=== PATIENT | male | born 1940 | race Caucasian/White ===

== ENCOUNTER → 2018-06-02 | Outpatient (REF) | payer MEDICARE ==
[2018-06-02 14:11] LABS: BASO % 0.6 % (0.0-1.0); EOS # 0.1 10^3/uL (0.0-0.50); EOS % 1.6 % (0.0-3.0); HEMATOCRIT 39.6 % (42.0-52.0); HEMOGLOBIN 12.2 g/dl (13.5-17.5); LYMPH # 1.7 10^3/uL (1.5-4.5); LYMPH % 33.5 % (24.0-44.0); MEAN CORPUSCULAR HEMOGLOBIN 20.5 pg (27.0-33.0); MEAN CORPUSCULAR HGB CONC 30.8 g/dl (32.0-36.5); MEAN CORPUSCULAR VOLUME 66.4 fl (80.0-96.0); MONO # 0.4 10^3/uL (0.0-0.8); MONO % 7.5 % (0.0-5.0); NEUTROPHILS # 2.8 10^3/uL (1.8-7.7); NEUTROPHILS % 56.2 % (36.0-66.0); PLATELET COUNT, AUTOMATED 202 10^3/uL (150-450); RED BLOOD COUNT 5.96 10^6/uL (4.30-6.10); WHITE BLOOD COUNT 5.1 10^3/uL (4.0-10.0)
[2018-06-02 14:17] LABS: C REACTIVE PROTEIN QUANTITATIV 0.32 MG/DL (0.00-0.30); CHOLESTEROL RISK RATIO 3.269 (<5); PERCENT SATURATION 39.7 % (19.7-50.0)
== END ==
LOC: M SFHCPLAZ 09:29
PROVIDERS: ATTEND Family Medicine
DX: D56.3 Thalassemia minor (principal); E78.2 Mixed hyperlipidemia; E53.8 Deficiency of other specified B group vitamins; N40.1 Benign prostatic hyperplasia with lower urinary tract symptoms; Z12.5 Encounter for screening for malignant neoplasm of prostate
CPT/HCPCS: 36415; 80061; 82550; 82728; 83550; 85025; 86140; G0103

== ENCOUNTER 2018-06-29 16:31 | Inpatient (IN) | payer MEDICARE ==
[~2018-06-29] VITALS: Ht 177.8 cm; Wt 77.0 kg
[2018-06-29] MEDS ORDERED: PANT40TA3 (16:42)
[2018-06-29] MEDS ORDERED: TRIA1CR80 (16:42)
[2018-06-29] MEDS ORDERED: SERT-155 (16:42)
--- NOTE | 2018-06-29 17:20 | REP ---
Right lower extremity duplex venous ultrasound: History: Swelling. Calf pain. Question DVT. Findings: There is occlusive deep venous thrombosis in the femoral vein on the right from the proximal through popliteal vein and into the calf venous confluence. The common femoral vein itself is clear. Impression: Fairly extensive occlusive deep venous thrombosis in the right thigh. Electronically Signed by Jae Chambers MD 06/29/2018 05:11 P
[2018-06-29] MEDS ORDERED: NS 1,000 ML IV ONE (19:00)
[2018-06-29 19:04] LABS: BASO % 0.2 % (0.0-1.0); EOS # 0.1 10^3/uL (0.0-0.50); EOS % 0.6 % (0.0-3.0); HEMATOCRIT 36.6 % (42.0-52.0); HEMOGLOBIN 11.4 g/dl (13.5-17.5); LYMPH # 1.8 10^3/uL (1.5-4.5); LYMPH % 21.1 % (24.0-44.0); MEAN CORPUSCULAR HEMOGLOBIN 20.4 pg (27.0-33.0); MEAN CORPUSCULAR HGB CONC 31.1 g/dl (32.0-36.5); MEAN CORPUSCULAR VOLUME 65.6 fl (80.0-96.0); MONO # 0.8 10^3/uL (0.0-0.8); MONO % 8.9 % (0.0-5.0); NEUTROPHILS # 5.9 10^3/uL (1.8-7.7); NEUTROPHILS % 68.7 % (36.0-66.0); PLATELET COUNT, AUTOMATED 194 10^3/uL (150-450); RED BLOOD COUNT 5.58 10^6/uL (4.30-6.10); WHITE BLOOD COUNT 8.6 10^3/uL (4.0-10.0)
[2018-06-29 19:13] LABS: BLOOD UREA NITROGEN 16 MG/DL (7-18); CALCIUM LEVEL 8.5 MG/DL (8.8-10.2); CARBON DIOXIDE LEVEL 29 MEQ/L (21-32); CHLORIDE LEVEL 105 MEQ/L (98-107); CREATININE FOR GFR 0.84 MG/DL (0.70-1.30); GLOMERULAR FILTRATION RATE > 60.0 (>42); GLUCOSE, FASTING 103 MG/DL (70-100); POTASSIUM SERUM 4.2 MEQ/L (3.5-5.1); SODIUM LEVEL 141 MEQ/L (136-145); TROPONIN I < 0.02 NG/ML (< 0.10)
[2018-06-29 19:20] LABS: INR 1.03; PROTHROMBIN TIME 13.6 SECONDS (12.1-14.4)
[2018-06-29 19:21] LABS: PARTIAL THROMBOPLASTIN TIME 32.7 SECONDS (25.4-37.6)
[2018-06-29] MEDS ORDERED: ISOVUE-370 76% 100ML VIAL (Q9967) As Ordered ONE (19:31)
--- NOTE | 2018-06-29 20:42 | REPVR ---
EXAM: CT Angiography Chest With Contrast EXAM DATE/TIME: 06/29/2018 7:43 PM CLINICAL HISTORY: 77 years old, male; Signs and symptoms; Dyspnea; Additional info: Acute dvt, dyspnea R/O pe TECHNIQUE: Axial computed tomographic angiography images of the chest with intravenous contrast using CT angiography protocol. All CT scans at this facility use at least one of these dose optimization techniques: automated exposure control; mA and/or kV adjustment per patient size (includes targeted exams where dose is matched to clinical indication); or iterative reconstruction. Coronal and sagittal reformatted images were created and reviewed. MIP reconstructed images were created and reviewed. CONTRAST: 75 ml of ISOVUE 370 administered intravenously. COMPARISON: CR Abdomen,Flat Upright,PA CHEST 12/27/2013 12:29 PM FINDINGS: Pulmonary arteries: The main pulmonary artery measures 26 mm. Moderate bilateral pulmonary embolism involving all lobes to some degree. Aorta: The ascending thoracic aorta measures 30 mm. No gross or obvious aortic dissection is identified distal to the mid arch. Artifact and image degradation precludes detailed evaluation of the ascending thoracic aorta. Lungs: Minimal diffuse bullous change with slight interstitial prominence. Pleural space: Normal. No pneumothorax. No pleural effusion. Heart: Normal. No cardiomegaly. No pericardial effusion. Lymph nodes: Unremarkable. No enlarged lymph nodes. Bones/joints: Unremarkable. No acute fracture. Soft tissues: Unremarkable. IMPRESSION: 1. Moderate bilateral pulmonary embolism. 2. Minimal diffuse bullous change with slight interstitial prominence. Electronically signed by: James Claros On 06/29/2018 20:42:23 PM
[2018-06-29] MEDS ORDERED: ENOXAPARIN 80 MG/0.8 ML SYRINGE (J1650) SC ONE (21:15)
[2018-06-29] MEDS ORDERED: SERT-155 PO (21:26)
[2018-06-29] MEDS ORDERED: VITATAB73 PO (21:26)
[2018-06-29] MEDS ORDERED: PANT40TA3 PO (21:26)
[2018-06-29] MEDS ORDERED: CORT1OIN2 TOP (21:26)
[2018-06-29] MEDS ORDERED: VITA10002 PO (21:26)
[2018-06-29] MEDS ORDERED: IBUPOTC PO (21:26)
[2018-06-29] MEDS ORDERED: TYLE500T78 PO (21:26)
--- NOTE | 2018-06-29 22:15 | HPEPDOC ---
[facility] Medical History & Physical Date of Admission Jun 29, 2018 Other Provider Dictating/admitting: Chandan Rossi M.D. Attending Physician: HEATHER MONCADA DO History and Physical CHIEF COMPLAINT: Shortness of breath, swollen and painful right lower extremity 3 days HISTORY OF PRESENT ILLNESS: Patient is a 77-year-old man with medical history significant for anemia, secondary to beta thalassemia, GERD, depression, migraine headaches, lumbar degenerative disease. Patient reports not feeling well for the past couple of weeks with generalized malaise been unable to get out of bed. He also complains of shortness of breath as well as swollen right lower extremity associated with pain for 3 days. At the time pain was relieved with Tylenol and ibuprofen. However, he noted today. He had right lower cough, swelling and he feels his right leg a little heavier. And on account of this, he was brought in to the emergency room for further evaluation. He has shortness of breath. He says none concerning. He attributes this to his generalized weakness but denies any associated cough, no fever, no chills. He refers inactivity for the past couple of weeks and has found it progressively difficult getting out of bed. He was evaluated in the emergency room with lower extremity ultrasound as well as a CT angiography of the chest which were significant for DVT and PE. At this time. He denies any palpitations. No cough. No nausea no vomiting. He denies any fever, no chills. He also denies any change in his bowel or urinary habits. Dr. Garcia was curb sided and he recommends that patient be an ticoagulated at this time. Patient will be admitted to the PCU with anticoagulation. PAST MEDICAL HISTORY: Per HPI PAST SURGICAL HISTORY: 1. Inguinal hernia repair. 2. Septoplasty. 3. Colonoscopy showing diverticulosis. SOCIAL HISTORY: Denies smoking, denies alcohol use. Denies illicit drug use FAMILY HISTORY: Father: , in World War II at age 25 Mother: Alive, diagnosed with colon cancer at age 82 Siblings: 2 brothers and 3 sisters. One brother from AIDS denies cancers in the family Children: 5 daughters ALLERGIES: Please see below. REVIEW OF SYSTEMS: 12 point review of systems negative other than that described in the body of HPI. HOME MEDICATIONS: Please see below. PHYSICAL EXAMINATION: VITAL SIGNS: Temperature 97.2, pulse 84, respiratory rate 16, blood pressure 168/16, pulse oximetry 99% on room air. GENERAL APPEARANCE: Elderly man, lying calmly in bed, not in any apparent distress. He is not pale, anicteric and afebrile HEENT: Atraumatic. Neck: Supple. LUNGS: Clear to auscultation bilaterally. CARDIOVASCULAR: S1 and 2 heard, no murmurs, rubs or gallops. ABDOMEN: Obese, soft, not tender, not distended. Bowel sounds normoactive. MUSCULOSKELETAL: Apparently within normal limits. EXTREMITIES: No pedal edema, 2+ bilateral pedal pulses noted. NEUROLOGICAL: Awake, alert, oriented 3. PSYCHIATRIC: Normal affect LABORATORY DATA: See below. IMAGING: Right lower extremity ultrasound: Fairly extensive occlusive DVT in the right thigh. CT angiogram chest: Minimal diffuse bullous changes with slight interstitial prominence, moderate bilateral PE. EKG: Normal sinus rhythm, no acute ST or T-wave changes. MICROBIOLOGY: Please see below. ASSESSMENT: 77-year-old man with above-mentioned comorbid history comes in with generalized malaise, shortness of breath, right lower extremity swelling and pain. Imaging consistent with DVT in the right lower extremity and moderate bilateral PE. DIAGNOSES: 1. Bilateral PE. 2. Right lower extremity DVT . PLAN: 1. I will admit patient to the PCU under care of Dr. Moncada. 2. Patient will continue with Lovenox dosed by weights. Patient weighs 8KGs. He will get 80 mg twice a day. Day team may consider switching to NOACS when indicated. 3. Will resume outpatient medications as soon as reconciled. 4. GI prophylaxis. Pantoprazole. 5. DVT prophylaxis will continue with anticoagulation as above. 6. Follow-up coag panel pending. 7. Further treatment will be per patient's clinical course. Vital Signs Vital Signs Date Time Temp Pulse Resp B/P (MAP) Pulse Ox O2 Delivery O2 Flow Rate FiO2 06/29/18 18:14 06/29/18 16:31 97.2 84 16 99 Room Air Laboratory Data Labs 24H Laboratory Tests 2 06/29/18 18:43: Immature Granulocyte % (Auto) 0.5, White Blood Count 8.6, Red Blood Count 5.58, Hemoglobin 11.4L, Hematocrit 36.6L, Mean Corpuscular Volume 65.6L, Mean Corpuscular Hemoglobin 20.4L, Mean Corpuscular Hemoglobin Concent 31.1L, Red Cell Distribution Width 17.4H, Platelet Count 194, Neutrophils (%) (Auto) 68.7H, Lymphocytes (%) (Auto) 21.1L, Monocytes (%) (Auto) 8.9H, Eosinophils (%) (Auto) 0.6, Basophils (%) (Auto) 0.2, Neutrophils # (Auto) 5.9, Lymphocytes # (Auto) 1.8, Monocytes # (Auto) 0.8, Eosinophils # (Auto) 0.1, Basophils # (Auto) 0.0, Nucleated Red Blood Cells % (auto) 0.0, Prothrombin Time 13.6, Prothromb Time International Ratio 1.03, Activated Partial Thromboplast Time 32.7, Anion Gap 7L, Glomerular Filtration Rate > 60.0, Blood Urea Nitrogen 16, Creatinine 0.84, Sodium Level 141, Potassium Level 4.2, Chloride Level 105, Carbon Dioxide Level 29, Calcium Level 8.5L, Troponin I < 0.02 06/29/18 19:30: CBC/BMP Laboratory Tests 06/29/18 18:43 Red Blood Count 5.58, Mean Corpuscular Volume 65.6 L, Mean Corpuscular Hemoglobin 20.4 L, Mean Corpuscular Hemoglobin Concent 31.1 L, Red Cell Distribution Width 17.4 H, Neutrophils (%) (Auto) 68.7 H, Lymphocytes (%) (Auto) 21.1 L, Monocytes (%) (Auto) 8.9 H, Eosinophils (%) (Auto) 0.6, Basophils (%) (Auto) 0.2, Neutrophils # (Auto) 5.9, Lymphocytes # (Auto) 1.8, Monocytes # (Auto) 0.8, Eosinophils # (Auto) 0.1, Basophils # (Auto) 0.0, Calcium Level 8.5 L Home Medications Scheduled (Sertraline HCl) 50 Mg Tab, 50 MG PO QHS (Vitamin B-Complex) 1 Tab Tab, 1 TAB PO Q2D Cyanocobalamin (Vitamin B-12) 1,000 Mcg Tab, 1,000 MCG PO DAILY Pantoprazole Sodium (Pantoprazole Sodium) 40 Mg Tab, 40 MG PO QPM TAKES AT DINNERTIME Scheduled PRN Acetaminophen (Tylenol Extra Strength) 500 Mg Tab, 1,000 MG PO Q6H PRN for PAIN Hydrocortisone Base (Cortizone-10) 1 % Oin, 1 DOSE TOP QID PRN for HEMORRHOIDS USES FOR HEMORRHOIDS NEEDED Ibuprofen (Ibuprofen) 200 Mg Tab, 400 MG PO Q6H PRN for PAIN Allergies Coded Allergies: Horse-derived Products (Verified Allergy, Unknown, 09/05/12) Penicillins (Verified Allergy, Unknown, 09/05/12) Penicillins Cross Reactors (Verified Allergy, Unknown, 09/05/12) CHANDAN ROSSI MD Jun 29, 2018 21:35
[2018-06-29] MEDS: ACETAMINOPHEN 500 MG TAB PO PRN (22:18)
[2018-06-29] MEDS: NS 1,000 ML IV SCH (22:26)
[2018-06-30 06:28] LABS: HEMATOCRIT 33.2 % (42.0-52.0); HEMOGLOBIN 10.4 g/dl (13.5-17.5); MEAN CORPUSCULAR HEMOGLOBIN 20.3 pg (27.0-33.0); MEAN CORPUSCULAR HGB CONC 31.3 g/dl (32.0-36.5); MEAN CORPUSCULAR VOLUME 64.7 fl (80.0-96.0); PLATELET COUNT, AUTOMATED 179 10^3/uL (150-450); RED BLOOD COUNT 5.13 10^6/uL (4.30-6.10); WHITE BLOOD COUNT 7.1 10^3/uL (4.0-10.0)
[2018-06-30 06:43] LABS: INR 1.15; PROTHROMBIN TIME 14.9 SECONDS (12.1-14.4)
[2018-06-30 06:44] LABS: BLOOD UREA NITROGEN 12 MG/DL (7-18); CALCIUM LEVEL 8.2 MG/DL (8.8-10.2); CARBON DIOXIDE LEVEL 25 MEQ/L (21-32); CHLORIDE LEVEL 109 MEQ/L (98-107); CREATININE FOR GFR 0.68 MG/DL (0.70-1.30); GLOMERULAR FILTRATION RATE > 60.0 (>42); GLUCOSE, FASTING 91 MG/DL (70-100); SODIUM LEVEL 141 MEQ/L (136-145)
[2018-06-30 08:00] VITALS: BP 129/75
[2018-06-30] MEDS: CYANOCOBALAMIN 500 MCG TAB PO SCH (10:26)
--- NOTE | 2018-06-30 10:47 | ECGEPIP ---
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 Order Number: [id number] Reading MD: Theresa Cui Measurements Intervals [place] Rate: 84 P: 74 CO: 187 QRS: 12 QRSD: 94 T: 20 QT: 316 QTc: 375 Interpretive Statements SINUS RHYTHM NONSPECIFIC T-WAVE ABNORMALITY INCREASED RATE 12/24/11 Electronically Signed On 06-30-2018 10:47:11 EST by Theresa Cui
[2018-06-30] MEDS: NS 1,000 ML IV SCH (11:05)
[2018-06-30] MEDS: ENOXAPARIN 80 MG/0.8 ML SYRINGE (J1650) SC SCH ×2 (11:52→21:02)
[2018-06-30] MEDS: ACETAMINOPHEN 500 MG TAB PO PRN ×2 (11:53→20:57)
[2018-06-30 12:00] VITALS: BP 143/83
[2018-06-30 15:30] VITALS: BP 129/72
[2018-06-30] MEDS: PANTOPRAZOLE 40MG TAB (PROTONIX) PO SCH (18:12)
--- NOTE | 2018-06-30 19:09 | IPNPDOC ---
Subjective Date Seen The patient was seen on 06/30/18. Subjective Chief Complaint/HPI Patient is examined at bedside with family. He reports no chest pain, palpitation, or cough. He did admit having SOB. He reports having chills for about a day. Denies pleuritic pain upon questioning. He reported 1/10 "discomfort" but not really pain on left calf region. Patient asked about mild neck pain on left sided posterior neck but reports that he can move his neck just fine. General: Reports: Chills Constitutional: Reports: Chills; Denies: Fever Pulmonary: Reports: Dyspnea; Denies: Cough, Pleuritic Chest Pain Cardiovascular: Denies: Chest Pain, Palpitations Gastrointestinal: Denies: Nausea, Vomiting, Abdominal Pain, Diarrhea, Constipation Musculoskeletal: Reports: Neck Pain (Mild; on left side) Neurological: Denies: Change in speech, Confusion Objective Physical Examination General Exam: Positive: Alert, Cooperative, No Acute Distress, Mild Distress Eye Exam: Positive: Conjunctiva & lids normal; Negative: Sclera icteric, Ptosis ENT Exam: Positive: Atraumatic, Mucous membr. moist/pink Neck Exam: Positive: Supple; Negative: JVD Chest Exam: Positive: Normal air movement, Diminished (left lower lobe while aus. posteriorly); Negative: Rales, Rhonchi, Wheezing Heart Exam: Positive: Rate Normal, Regular Rhythm, Normal S1, Normal S2 Abdomen Exam: Positive: BS Hypoactive, Soft; Negative: Tenderness Extremity Exam: Positive: Normal pulses, Swelling (Of left calf), Other (Mild erythema of left calf; no warmth. B/l pedal pulse . Mildly-moderately diminished femoral pulse on right) Neuro Exam: Positive: Normal Speech Psych Exam: Positive: Mental status NL, Mood NL Assessment /Plan Problems (1) Pulmonary embolism Status: Acute Problem Text: Asymptomatic besides SOB. Pt not in acute severe distress. Tylenol PRN.On Lovenox 80mg Q12h. F/u with INR; switch anti-coagulants when INR 2-3 (2) Right leg DVT Status: Acute Problem Text: On Lovenox 80mg Q12h. F/u with INR; switch anti-coagulants when INR 2-3. Continue to monitor for signs and symptoms; Tylenol PRN (3) Depression Status: Chronic Response to Treatment: Stable Problem Text: Continue home med Sertraline. Pt mood appeared to be stable. Continue to monitor (4) Constipation Status: Chronic Response to Treatment: Controlled Problem Text: medical hx of constipation. Pt reported last BM the day prior to coming in and use Miralax at home PRN. Start Miralax PRN Plan/VTE VTE Prophylaxis Ordered?: Yes (heparin) VS, I&O, 24H, Fishbone Vital Signs/I&O Vital Signs Date Time Temp Pulse Resp B/P (MAP) Pulse Ox O2 Delivery O2 Flow Rate FiO2 06/30/18 15:30 97.0 72 18 129/72 (91) 91 Room Air Laboratory Data 24H LABS Laboratory Tests 2 06/29/18 19:30: 06/30/18 06:04: Nucleated Red Blood Cells % (auto) 0.0, Prothrombin Time 14.9H, Prothromb Time International Ratio 1.15, Anion Gap 7L, Glomerular Filtration Rate > 60.0, Blood Urea Nitrogen 12, Creatinine 0.68L, Sodium Level 141, Potassium Level 4.0, Chloride Level 109H, Carbon Dioxide Level 25, Calcium Level 8.2L CBC/BMP Laboratory Tests 06/30/18 06:04 Red Blood Count 5.13, Mean Corpuscular Volume 64.7 L, Mean Corpuscular Hemoglobin 20.3 L, Mean Corpuscular Hemoglobin Concent 31.3 L, Red Cell Distribution Width 16.8 H, Calcium Level 8.2 L SHELL KAPOOR DO Jun 30, 2018 19:09
[2018-06-30] MEDS ORDERED: MIRALAX *UNIT DOSE* 17GM PACKET PO PRN (19:15)
[2018-06-30 20:00] VITALS: BP 127/75
[2018-06-30] MEDS: SERTRALINE HCL 50 MG TAB PO SCH (20:56)
[2018-07-01] VITALS: BP 131/79
[2018-07-01] MEDS: NS 1,000 ML IV SCH ×2 (00:08→13:08)
[2018-07-01 04:00] VITALS: BP 131/84
[2018-07-01 05:00] LABS: HEMATOCRIT 32.2 % (42.0-52.0); HEMOGLOBIN 10.1 g/dl (13.5-17.5); MEAN CORPUSCULAR HEMOGLOBIN 20.6 pg (27.0-33.0); MEAN CORPUSCULAR HGB CONC 31.4 g/dl (32.0-36.5); MEAN CORPUSCULAR VOLUME 65.6 fl (80.0-96.0); PLATELET COUNT, AUTOMATED 189 10^3/uL (150-450); RED BLOOD COUNT 4.91 10^6/uL (4.30-6.10)
[2018-07-01 05:09] LABS: INR 1.12; PROTHROMBIN TIME 14.6 SECONDS (12.1-14.4)
[2018-07-01] MEDS: ACETAMINOPHEN 500 MG TAB PO PRN ×2 (07:55→17:30)
[2018-07-01 08:00] VITALS: BP 129/68
[2018-07-01 09:16] LABS: PARTIAL THROMBOPLASTIN TIME 45.3 SECONDS (25.4-37.6)
[2018-07-01] MEDS: CYANOCOBALAMIN 500 MCG TAB PO SCH (10:16)
[2018-07-01] MEDS: ENOXAPARIN 80 MG/0.8 ML SYRINGE (J1650) SC SCH (10:16)
[2018-07-01 12:00] VITALS: BP 136/81
--- NOTE | 2018-07-01 14:12 | IPNPDOC ---
Subjective Date Seen The patient was seen on 07/01/18. Subjective Chief Complaint/HPI Patient is examined at bedside. He reports that he is feeling good with no- minimal SOB, chest pain, palpitation, fever, chills, diarrhea, constipation, or abdominal pain. He reported that the pain in his right calf has gone down compared to yesterday. General: Denies: Chills Constitutional: Denies: Chills, Fever Pulmonary: Reports: Dyspnea (no-minimal); Denies: Cough, Pleuritic Chest Pain Cardiovascular: Denies: Chest Pain, Palpitations Gastrointestinal: Denies: Nausea, Vomiting, Abdominal Pain, Diarrhea, Constipation Neurological: Denies: Weakness, Numbness, Change in speech, Confusion Psych: Reports: Mood Normal Objective Physical Examination General Exam: Positive: Alert, Cooperative, No Acute Distress Eye Exam: Positive: Conjunctiva & lids normal; Negative: Sclera icteric, Ptosis ENT Exam: Positive: Atraumatic, Mucous membr. moist/pink Neck Exam: Positive: Supple; Negative: JVD Chest Exam: Positive: Normal air movement; Negative: Rales, Rhonchi, Wheezing Heart Exam: Positive: Rate Normal, Regular Rhythm, Normal S1, Normal S2 Abdomen Exam: Positive: Normal bowel sounds, Soft; Negative: Tenderness Extremity Exam: Positive: Swelling (mild (1-2mm) pitting edema on the right anterior oneal); Negative: Cyanosis Neuro Exam: Positive: Normal Speech Psych Exam: Positive: Mental status NL, Mood NL, Memory Intact, Oriented x 3 Assessment /Plan Problems (1) Pulmonary embolism Status: Acute Problem Text: Asymptomatic, pt in no distress. Tylenol PRN. On Lovenox 80mg Q12h; day 2. Start Rivaroxaban this evening. Coagulopathy lab workup pending. (2) Right leg DVT Status: Acute Problem Text: Improving right calf swelling. On Lovenox 80mg Q12h; day 2. Rivaroxaban after Lovenox for at least 6 months. Continue to monitor for signs and symptoms; Tylenol PRN. Coagulopathy lab workup pending (3) Depression Status: Chronic Response to Treatment: Stable, Controlled Problem Text: Continue home med Sertraline. Pt mood appeared to be stable. Continue to monitor (4) Constipation Status: Chronic Response to Treatment: Controlled Problem Text: Pt reported (+) bowel movement. Medical hx of constipation; pt use Miralax at home PRN. Cont Miralax PRN Plan/VTE VTE Prophylaxis Ordered?: Yes (heparin) Plan Diet: Continue Current Activity: Continue Current Medications: Bowel Regimen Diagnostics: Repeat Labs in AM Anticipated Discharge: Home Family Medicine Attending Note: I was present on site to supervise ALINE Iverson. We discussed the history and exam. I confirmed the hall elements during my [id number] encounter with the patient. We conferred on the assessment and plan; I agree with the note as documented. Mr. Ayala seems to making good progress. 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 Day 2 Lovenox; start rivaroxaban tonight and anticipate discharge home tomorrow if no symptoms develop VS, I&O, 24H, Fishbone Vital Signs/I&O Vital Signs Date Time Temp Pulse Resp B/P (MAP) Pulse Ox O2 Delivery O2 Flow Rate FiO2 07/01/18 12:00 97.8 70 18 136/81 (99) 97 Room Air I&O- Last 24 Hours up to 6 AM 07/01/18 06:00 Intake Total 2067.5 ml Output Total 1450 ml Balance 617.5 ml Laboratory Data 24H LABS Laboratory Tests 2 07/01/18 04:18: Nucleated Red Blood Cells % (auto) 0.0, Prothrombin Time 14.6H, Prothromb Time International Ratio 1.12, Activated Partial Thromboplast Time 45.3H CBC/BMP Laboratory Tests 07/01/18 04:18 Red Blood Count 4.91, Mean Corpuscular Volume 65.6 L, Mean Corpuscular Hemoglobin 20.6 L, Mean Corpuscular Hemoglobin Concent 31.4 L, Red Cell Distribution Width 16.5 H SHELL KAPOOR DO Jul 01, 2018 14:12 David Gaitan MD Jul 02, 2018 12:07
[2018-07-01 15:55] VITALS: BP 139/74
[2018-07-01] MEDS: PANTOPRAZOLE 40MG TAB (PROTONIX) PO SCH (17:30)
[2018-07-01] MEDS: RIVAROXABAN 15 MG TAB (XARELTO) PO SCH (18:35)
[2018-07-01 20:00] VITALS: BP 115/73
[2018-07-01] MEDS: SERTRALINE HCL 50 MG TAB PO SCH (20:18)
[2018-07-02] MEDS: ACETAMINOPHEN 500 MG TAB PO PRN ×2 (00:16→08:32)
[2018-07-02 00:19] VITALS: BP 127/76
[2018-07-02] MEDS: NS 1,000 ML IV SCH (03:06)
[2018-07-02 04:00] VITALS: BP 132/82
[2018-07-02 05:43] LABS: HEMATOCRIT 31.1 % (42.0-52.0); HEMOGLOBIN 9.7 g/dl (13.5-17.5); MEAN CORPUSCULAR HEMOGLOBIN 20.3 pg (27.0-33.0); MEAN CORPUSCULAR HGB CONC 31.2 g/dl (32.0-36.5); MEAN CORPUSCULAR VOLUME 65.1 fl (80.0-96.0); PLATELET COUNT, AUTOMATED 213 10^3/uL (150-450); RED BLOOD COUNT 4.78 10^6/uL (4.30-6.10); WHITE BLOOD COUNT 6.1 10^3/uL (4.0-10.0)
[2018-07-02 06:03] LABS: INR 1.32; PROTHROMBIN TIME 16.6 SECONDS (12.1-14.4)
[2018-07-02 08:00] VITALS: BP 119/83
[2018-07-02] MEDS: RIVAROXABAN 15 MG TAB (XARELTO) PO SCH (08:52)
[2018-07-02] MEDS: CYANOCOBALAMIN 500 MCG TAB PO SCH (08:52)
[2018-07-02 11:52] VITALS: BP 114/64
[2018-07-02] MEDS ORDERED: XARE15TA PO (12:40)
--- NOTE | 2018-07-02 12:43 | DS.PDOC ---
Discharge Summary General Date of Admission Jun 29, 2018 at 21:35 Date of Discharge 07/02/18 Primary Care Physician: Ruel Rios M.D. Attending Physician: David Gaitan MD Discharge Summary ADMITTING DIAGNOSES: 1. Bilateral PE. 2. Right lower extremity DVT. DISCHARGE DIAGNOSES: 1. Bilateral PE. 2. Right lower extremity DVT. 3. Depression. 4. Constipation. PROCEDURES PERFORMED DURING STAY: None. ADMISSION HISTORY: Mr. Ayala presented to the [facility] ER with shortness of breath, swollen and a painful right lower extremity 3 days. Please see the admission history and physical for the remaining details. HOSPITAL COURSE: Mr. Scales was brought to the emergency department shortness of breath. It was soon determined that he had a bilateral pulmonary embolism. Fortunately he was clinically stable throughout this. A right lower extremity DVT was also diagnosed. He was initially treated with Lovenox 1 mg/kg every 12 hours but was quickly changed to rivoroxaban. He tolerated this well and was discharged with this medication DISCHARGE CONDITION: Stable. FOLLOW-UP: Prior to discharge an appointment was scheduled with Dr. Rios on [facility] at 2 p.m. DIET: High-fiber. ACTIVITY: As tolerated. DISCHARGE MEDICATIONS: Please see below. ALLERGIES: Please see below. LABORATORY DATA: Please see below. IMAGING: CT angiogram of the chest, lower extremity venous Doppler DISCHARGE INSTRUCTIONS: 1. Make sure you take your new medication twice daily. ITEMS TO FOLLOWUP ON ON OUTPATIENT: 1. Duration of anticipated anticoagulation. Vital Signs/I&Os Vital Signs Date Time Temp Pulse Resp B/P (MAP) Pulse Ox O2 Delivery O2 Flow Rate FiO2 07/02/18 11:52 97.2 74 18 114/64 (81) 96 Room Air I&O- Last 24 Hours up to 6 AM 07/02/18 06:00 Intake Total 2145 ml Output Total 750 ml Balance 1395 ml Laboratory Data Labs 24H Laboratory Tests 2 07/02/18 04:44: Nucleated Red Blood Cells % (auto) 0.0, Prothrombin Time 16.6H, Prothromb Time International Ratio 1.32 CBC/BMP Laboratory Tests 07/02/18 04:44 Red Blood Count 4.78, Mean Corpuscular Volume 65.1 L, Mean Corpuscular Hemoglobin 20.3 L, Mean Corpuscular Hemoglobin Concent 31.2 L, Red Cell Distribution Width 16.3 H Discharge Medications Scheduled (Sertraline HCl) 50 Mg Tab, 50 MG PO QHS, (Reported) (Vitamin B-Complex) 1 Tab Tab, 1 TAB PO Q2D, (Reported) Cyanocobalamin (Vitamin B-12) 1,000 Mcg Tab, 1,000 MCG PO DAILY, (Reported) Pantoprazole Sodium (Pantoprazole Sodium) 40 Mg Tab, 40 MG PO QPM, (Reported) TAKES AT DINNERTIME Rivaroxaban (Xarelto) 15 Mg Tab, 15 MG PO BID@08,18 Will need a new script for 20mg daily once this one is completed. Scheduled PRN Acetaminophen (Tylenol Extra Strength) 500 Mg Tab, 1,000 MG PO Q6H PRN for PAIN, (Reported) Hydrocortisone Base (Cortizone-10) 1 % Oin, 1 DOSE TOP QID PRN for HEMORRHOIDS, (Reported) USES FOR HEMORRHOIDS NEEDED Ibuprofen (Ibuprofen) 200 Mg Tab, 400 MG PO Q6H PRN for PAIN, (Reported) Allergies Coded Allergies: Horse-derived Products (Verified Allergy, Unknown, 09/05/12) Penicillins (Verified Allergy, Unknown, 09/05/12) Penicillins Cross Reactors (Verified Allergy, Unknown, 09/05/12) David Gaitan MD Jul 02, 2018 12:43
[2018-07-04 10:33] LABS: DRVV SCREEN 44.3 SEC
[2018-07-04 10:34] LABS: PTT LUPUS TYPE ANTICOAG SCREEN 1.1 (0-1.2)
[2018-07-06 18:10] LABS: ANTI THROMBIN 3 ANTIGEN IMMUNO 94 % (72-124); ANTI THROMBIN 3 FUNCT ACTIVITY 128 % (75-135); CARDIOLIPIN IGA ANTIBODY <9 APL U/mL (0-11); CARDIOLIPIN IGG ANTIBODY <9 GPL U/mL (0-14); CARDIOLIPIN IGM ANTIBODY 14 MPL U/mL (0-12); PHOSPHOLIPIDS LEVEL 198 mg/dL (150-250); PROTEIN C FUNCTIONAL ACTIVITY 111 % (73-180); PROTEIN S FUNCTIONAL ACTIVITY 74 % (63-140)
== END 2018-07-02 14:22 | disposition home or self-care (01) | DRG 299 ==
LOC: M ED 16:31 → M ED INP 21:35 → M PCU 06-30 15:35
PROVIDERS: ADMIT Hospitalist; ATTEND Family Medicine
DX: I82.491 Acute embolism and thrombosis of other specified deep vein of right lower extremity (principal); I26.99 Other pulmonary embolism without acute cor pulmonale; K21.9 Gastro-esophageal reflux disease without esophagitis; F32.9 Major depressive disorder, single episode, unspecified; G43.909 Migraine, unspecified, not intractable, without status migrainosus; M51.26 Other intervertebral disc displacement, lumbar region; Z79.899 Other long term (current) drug therapy; Z88.0 Allergy status to penicillin; K59.00 Constipation, unspecified; D56.1 Beta thalassemia

== ENCOUNTER → 2018-07-07 | Outpatient (REF) | payer MEDICARE ==
[~2018-07-07] MED LIST: CORT1OIN2 TOP; IBUPOTC PO; PANT40TA3; PANT40TA3 PO; SERT-155; SERT-155 PO; TRIA1CR80; TYLE500T78 PO; VITA10002 PO; VITATAB73 PO; XARE15TA PO
[2018-07-07 18:42] LABS: BASO % 0.6 % (0.0-1.0); EOS # 0.1 10^3/uL (0.0-0.50); EOS % 1.7 % (0.0-3.0); HEMATOCRIT 36.1 % (42.0-52.0); HEMOGLOBIN 10.9 g/dl (13.5-17.5); LYMPH % 31.1 % (24.0-44.0); MEAN CORPUSCULAR HEMOGLOBIN 19.9 pg (27.0-33.0); MEAN CORPUSCULAR HGB CONC 30.2 g/dl (32.0-36.5); MONO # 0.5 10^3/uL (0.0-0.8); NEUTROPHILS # 3.8 10^3/uL (1.8-7.7); PLATELET COUNT, AUTOMATED 499 10^3/uL (150-450); RED BLOOD COUNT 5.47 10^6/uL (4.30-6.10); WHITE BLOOD COUNT 6.4 10^3/uL (4.0-10.0)
[2018-07-07 18:43] LABS: FERRITIN 748 NG/ML (26-388); IRON (FE) 52 UG/DL (65-175); PERCENT SATURATION 19.1 % (19.7-50.0); TOTAL IRON BINDING CAPACITY 272 UG/DL (250-450)
== END ==
LOC: M SFHCPLAZ 15:51
PROVIDERS: ATTEND Family Medicine
DX: I26.99 Other pulmonary embolism without acute cor pulmonale (principal)

== ENCOUNTER → 2018-07-13 | Outpatient (REF) | payer MEDICARE | LOC: M SFHCPLAZ 12:05 | PROVIDERS: ATTEND Family Medicine | DX: D23.30 Other benign neoplasm of skin of unspecified part of face (principal); B07.8 Other viral warts; L91.8 Other hypertrophic disorders of the skin ==

== ENCOUNTER → 2018-07-17 | Outpatient (CLI) | payer MEDICARE ==
[~2018-07-17] MED LIST changes: +ALTEPLASE RECOMBINANT 25 MG in NS 225 ML IV SCH; +HEPARIN DRIP 25,000 UNITS in APPROPRIATE DILUENT 1 EA IV SCH
== END ==
LOC: M IRPRO 09:38
PROVIDERS: ATTEND Surgery Vascular Surgery
DX: I26.99 Other pulmonary embolism without acute cor pulmonale (principal); Z53.8 Procedure and treatment not carried out for other reasons

== ENCOUNTER → 2018-07-31 | Outpatient (CLI) | payer MEDICARE ==
[~2018-07-31] MED LIST changes: -ALTEPLASE RECOMBINANT 25 MG in NS 225 ML IV SCH; -HEPARIN DRIP 25,000 UNITS in APPROPRIATE DILUENT 1 EA IV SCH
[2018-07-31 09:27] LABS: ALT/SGPT 31 U/L (12-78); BILIRUBIN,TOTAL 0.5 MG/DL (0.2-1.0); BLOOD UREA NITROGEN 15 MG/DL (7-18); CARBON DIOXIDE LEVEL 28 MEQ/L (21-32); CHLORIDE LEVEL 107 MEQ/L (98-107); CREATININE FOR GFR 0.86 MG/DL (0.70-1.30); GLOMERULAR FILTRATION RATE > 60.0 (>42); GLUCOSE, FASTING 84 MG/DL (70-100); POTASSIUM SERUM 4.3 MEQ/L (3.5-5.1); SODIUM LEVEL 141 MEQ/L (136-145); TOTAL PROTEIN 6.8 GM/DL (6.4-8.2)
== END ==
LOC: M LAB 08:32
PROVIDERS: ATTEND Physician Assistant Medical
DX: E78.2 Mixed hyperlipidemia (principal)

== ENCOUNTER → 2018-08-01 | Outpatient (CLI) | payer MEDICARE ==
[~2018-08-01] MED LIST changes: +GASTROGRAFIN SOLUTION 30ML (Q9963) As Ordered ONE; +ISOVUE-370 76% 100ML VIAL (Q9967) As Ordered ONE
--- NOTE | 2018-08-01 15:00 | REP ---
Clinical: Malignancy. Technique: Axial contrast enhanced images from the lung bases to the pubic symphysis using oral (per protocol) and 100 ml Isovue 370 intravenous contrast material with precontrast and delayed images of the abdomen as well as coronal and sagittal re-formations. Comparison: 08/04/2006. Findings: Lung bases are clear. Visualized heart and pericardium normal. Liver, spleen, pancreas, gallbladder, bilateral adrenal glands and kidneys are relatively normal. Stable subcentimeter left renal hypodensities compatible with cysts and unchanged. The enteric system is without obstruction or acute inflammatory process. Sigmoid diverticulosis noted without acute diverticulitis. Pelvis demonstrates normal bladder and mildly prominent prostate gland measuring approximately 4.4 cm maximal transverse diameter. No ascites. No free air. No adenopathy. Abdominal aorta and vasculature without aneurysm or dissection. Musculoskeletal structures demonstrate degenerative changes without focal osseous abnormality. Impression: 1. No acute abdominopelvic pathology appreciated. 2. Subcentimeter left renal hypodensities compatible with stable cysts. 3. Sigmoid diverticula without acute diverticulitis. 4. Mildly enlarged prostate gland. Electronically Signed by Claude Garcia MD 08/01/2018 02:51 P
--- NOTE | 2018-08-01 15:26 | REP ---
CT NECK WITH CONTRAST: HISTORY: Pulmonary embolism. CONTRAST: Isovue 370, 100 mL. COMPARISON: 06/22/2012. Calcifications are present in the tonsils and base of the epiglottis. This is secondary to previous inflammatory disease. The naso-, armida-, and hypopharynx, larynx and subglottic trachea are otherwise normal in appearance. The salivary and thyroid glands are normal in size and density. Small lymph nodes less than 1 cm in size are present in the internal jugular chains, posterior triangles, and submandibular areas. Degenerative change is present in the cervical spine. Scarring is present in the lung apices. Mucosal thickening is present in the maxillary sinuses. IMPRESSION: There is no neck mass or adenopathy. Electronically Signed by Wallace Squires MD 08/01/2018 03:33 P
== END ==
LOC: M RAD 11:59
PROVIDERS: ATTEND Family Medicine
DX: I26.99 Other pulmonary embolism without acute cor pulmonale (principal); K57.30 Diverticulosis of large intestine without perforation or abscess without bleeding; N40.0 Benign prostatic hyperplasia without lower urinary tract symptoms
CPT/HCPCS: 70491; 74178; Q9963; Q9967

== ENCOUNTER → 2018-11-15 | Outpatient (CLI) | payer MEDICARE ==
[~2018-11-15] MED LIST changes: -GASTROGRAFIN SOLUTION 30ML (Q9963) As Ordered ONE; -ISOVUE-370 76% 100ML VIAL (Q9967) As Ordered ONE
--- NOTE | 2018-11-15 16:09 | REP ---
HISTORY: History of DVT and venous reflux. TECHNIQUE: Multiple ultrasonographic images of the deep venous structures of the bilateral thighs were obtained from the common femoral vein to the popliteal vein along with Doppler interrogation and color flow Doppler images. LEFT There is no abnormal echogenic material seen within any of the visualized deep venous structures that would suggest acute thrombosis. Coaptation is unremarkable throughout. Doppler interrogation shows an expected response to respiratory variability and augmentation. The color flow images show what appears to be a normal vascular pattern throughout. RIGHT Prior DVT study of 06/29/2018 showed an extensive deep vein thrombosis in the femoral and popliteal veins. When this is compared to the prior exam, abnormal echogenic material persists throughout all components of the right femoral vein extending into the popliteal vein much the same as on the prior exam. IMPRESSION: 1. No evidence of a DVT on the left. 2. Abnormal echogenic material on the right as described above. Although this likely represents chronic change, I cannot rule out the possibility of acute disease superimposed upon chronic change. This needs to be correlated clinically. REFLUX STUDY: RIGHT: Reflux was seen in the common femoral vein. No anterior accessory greater saphenous vein is present. No reflux was seen in the greater saphenous vein at the saphenofemoral junction, the AP dimension of which measures 6.9 mm. No reflux was seen in the greater saphenous vein at the mid thigh, the AP dimension of which measures 4.7 mm and no reflux was seen in the greater saphenous vein at the knee, the AP dimension of which measures 3.3 mm. Reflux was seen in all components of the superficial femoral vein and reflux was seen in the popliteal vein. No reflux was seen in the less saphenous vein, the AP dimension of which measured 3 mm. LEFT: Reflux was seen in the common femoral vein. No anterior accessory greater saphenous vein was present. No reflux was seen in the greater saphenous vein at the saphenofemoral junction, the AP dimension of which measures 3.5 mm. No reflux was seen in the greater saphenous vein at the mid thigh, the AP dimension of which measures 4 mm. No reflux was seen in the greater saphenous vein at the knee, the AP dimension of which measures 1.9 mm. Reflux was seen in all components of the superficial femoral vein and in the popliteal vein. No reflux was seen in the lesser saphenous vein, the AP dimension of which measures 3.1 mm. IMPRESSION: Abnormal bilateral reflux study as described above. Electronically Signed by Mg Chandler DO 11/15/2018 04:11 P
== END ==
LOC: M RAD 12:33
PROVIDERS: ATTEND Surgery Vascular Surgery
DX: R93.89 Abnormal findings on diagnostic imaging of other specified body structures (principal); Z86.718 Personal history of other venous thrombosis and embolism

== ENCOUNTER → 2018-12-05 | Outpatient (CLI) | payer MEDICARE ==
[~2018-12-05] MED LIST changes: +CYAN100049 PO; -VITA10002 PO
[2018-12-05 12:26] LABS: BASO % 0.4 % (0.0-1.0); EOS # 0.1 10^3/uL (0.0-0.50); EOS % 1.3 % (0.0-3.0); HEMATOCRIT 43.3 % (42.0-52.0); HEMOGLOBIN 13.5 g/dl (13.5-17.5); LYMPH # 1.6 10^3/uL (1.5-4.5); MEAN CORPUSCULAR HGB CONC 31.2 g/dl (32.0-36.5); MEAN CORPUSCULAR VOLUME 67.4 fl (80.0-96.0); MONO # 0.3 10^3/uL (0.0-0.8); MONO % 5.3 % (0.0-5.0); NEUTROPHILS # 2.8 10^3/uL (1.8-7.7); NEUTROPHILS % 59.6 % (36.0-66.0); PLATELET COUNT, AUTOMATED 246 10^3/uL (150-450); RED BLOOD COUNT 6.42 10^6/uL (4.30-6.10); WHITE BLOOD COUNT 4.7 10^3/uL (4.0-10.0)
[2018-12-05 12:27] LABS: HEMATOCRIT 42.7 % (42.0-52.0)
[2018-12-05 12:57] LABS: ALBUMIN 3.7 GM/DL (3.2-5.2); ALT/SGPT 18 U/L (12-78); BILIRUBIN,TOTAL 0.7 MG/DL (0.2-1.0); BLOOD UREA NITROGEN 12 MG/DL (7-18); CALCIUM LEVEL 8.9 MG/DL (8.8-10.2); CARBON DIOXIDE LEVEL 26 MEQ/L (21-32); CHLORIDE LEVEL 108 MEQ/L (98-107); CREATININE FOR GFR 0.96 MG/DL (0.70-1.30); FERRITIN 199 NG/ML (26-388); GLOMERULAR FILTRATION RATE > 60.0 (>42); GLUCOSE, FASTING 90 MG/DL (70-100); POTASSIUM SERUM 4.1 MEQ/L (3.5-5.1); SODIUM LEVEL 142 MEQ/L (136-145); TOTAL PROTEIN 6.7 GM/DL (6.4-8.2)
[2018-12-05 13:04] LABS: VITAMIN B12 LEVEL 742 PG/ML (247-911)
[2018-12-05 13:21] LABS: DRVV SCREEN 40.2 SEC
[2018-12-07 00:07] LABS: CARDIOLIPIN IGA ANTIBODY <9 APL U/mL (0-11); CARDIOLIPIN IGG ANTIBODY <9 GPL U/mL (0-14); CARDIOLIPIN IGM ANTIBODY 10 MPL U/mL (0-12)
== END ==
LOC: M LAB 11:49
PROVIDERS: ATTEND Family Medicine
DX: I26.99 Other pulmonary embolism without acute cor pulmonale (principal); D50.9 Iron deficiency anemia, unspecified; E53.8 Deficiency of other specified B group vitamins

== ENCOUNTER → 2019-06-12 | Outpatient (CLI) | payer MEDICARE ==
[~2019-06-12] MED LIST changes: -SERT-155; -SERT-155 PO; +SERT50TA29; +SERT50TA29 PO
--- NOTE | 2019-06-12 14:25 | REP ---
BILATERAL LOWER EXTREMITY DUPLEX DOPPLER VENOUS ULTRASOUND: Real-time compression and duplex Doppler interrogation of the bilateral lower extremity deep venous systems is performed. There is no thrombus seen in either common femoral vein. There is no thrombus seen in the left superficial femoral or popliteal veins with those vessels fully compressible and no evidence of intraluminal echogenic material. 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 There is occlusive thrombus seen in the mid to distal right superficial femoral vein. On the prior study, 11/15/2018, the thrombus in these regions appeared to be nonocclusive. Electronically Signed by Claude Ortega MD 06/13/2019 09:52 A
== END ==
LOC: M RAD 11:35
PROVIDERS: ATTEND Physician Assistant
DX: I26.99 Other pulmonary embolism without acute cor pulmonale (principal); I82.509 Chronic embolism and thrombosis of unspecified deep veins of unspecified lower extremity

== ENCOUNTER 2019-07-19 11:37 | Emergency (ER) | payer MEDICARE ==
[2019-07-19] MEDS ORDERED: ELIQ5TAB (11:47)
[2019-07-19] MEDS ORDERED: FERR325T18 (11:47)
--- NOTE | 2019-07-19 12:18 | REP ---
Clinical: Acute cerebrovascular accident . Comparison: 12/24/2011 . Findings: The mediastinum and cardiac silhouette are stable and within normal limits for portable technique. The lung bell are clear without acute consolidation, effusion, or pneumothorax. Skeletal structures are intact. Impression: No acute cardiopulmonary process appreciated. Electronically Signed by Claude Garcia MD 07/19/2019 12:09 P
--- NOTE | 2019-07-19 12:38 | REP ---
CT brain without contrast: History: CVA. Comparison head CT study is from December 12, 2009. CT findings: Preliminary digital strategic sourcing consultant radiograph is unremarkable. Findings: Preliminary digital strategic sourcing consultant radiograph is unremarkable. Bone window settings demonstrate an intact bony calvarium. The visualized paranasal sinuses are clear. No intraorbital abnormalities appreciated. There is a generalized intracranial volume loss as noted on the 2009 prior study. Today's exam demonstrates a subacute subdural hematoma on the right with relatively low density subdural fluid extending along the right frontal, right parietal, and superior portion of the right temporal lobes. This measures up to 6 mm in thickness and extends nearly to the vertex. There is subtle shift of the midline to the left measured at only 1.5 mm. There is no evidence of parenchymal hemorrhage. No evidence of infarction is seen. No mass or midline shift is noted. Impression: Small to moderate-sized subacute right subdural hematoma. Diffuse atrophy. 1.5 mm right to left midline shift. Results are telephoned to the referring provider in the ED at the time of the study. Electronically Signed by Jae Chambers MD 07/19/2019 01:08 P
[2019-07-19 12:47] LABS: BASO # 0.1 10^3/uL (0.0-0.2); EOS # 0.1 10^3/uL (0.0-0.5); EOS % 1.3 % (0.0-3.0); HEMATOCRIT 42.7 % (42.0-52.0); HEMOGLOBIN 13.1 g/dl (13.5-17.5); LYMPH # 1.6 10^3/uL (1.5-5.0); LYMPH % 29.7 % (24.0-44.0); MEAN CORPUSCULAR HEMOGLOBIN 20.8 pg (27.0-33.0); MEAN CORPUSCULAR HGB CONC 30.7 g/dl (32.0-36.5); MEAN CORPUSCULAR VOLUME 67.7 fl (80.0-96.0); MONO # 0.4 10^3/uL (0.0-0.8); MONO % 8.2 % (0.0-5.0); NEUTROPHILS # 3.1 10^3/uL (1.5-8.5); NEUTROPHILS % 59.4 % (36.0-66.0); PLATELET COUNT, AUTOMATED 317 10^3/uL (150-450); RED BLOOD COUNT 6.31 10^6/uL (4.30-6.10); WHITE BLOOD COUNT 5.2 10^3/uL (4.0-10.0)
[2019-07-19 12:56] LABS: INR 1.27; PROTHROMBIN TIME 15.6 SECONDS (11.8-14.0)
[2019-07-19 12:57] LABS: PARTIAL THROMBOPLASTIN TIME 31.6 SECONDS (25.0-38.4)
[2019-07-19 13:11] LABS: CK-MB VALUE MASS < 1.0 NG/ML (<3.6); CPK CREATINE PHOSPHOKINASE 37 U/L (39-308); TROPONIN I < 0.02 NG/ML (< 0.10)
[2019-07-19 14:00] VITALS: BP 130/75
--- NOTE | 2019-07-20 04:54 | ECGEPIP ---
[facility] - ED Test Date: 2019-07-19 Pat Name: GLENN UREÑA Department: Room: - Gender: Male [employer]: RYANNE : 1940 Requested By: River Lara Order Number: [id number] Reading MD: Marko Monahan Measurements Intervals [place] Rate: 65 P: 7 ND: 192 QRS: 14 QRSD: 102 T: 31 QT: 399 QTc: 415 Interpretive Statements SINUS RHYTHM Electronically Signed on 07-20-2019 4:54:42 EST by Marko Monahan
== END 2019-07-19 14:11 | disposition short-term general hospital (02) ==
LOC: M ED 11:37
DX: I62.02 Nontraumatic subacute subdural hemorrhage (principal); D56.9 Thalassemia, unspecified; N40.0 Benign prostatic hyperplasia without lower urinary tract symptoms; Z86.718 Personal history of other venous thrombosis and embolism; Z87.891 Personal history of nicotine dependence; Z88.0 Allergy status to penicillin; Z79.01 Long term (current) use of anticoagulants; Z79.899 Other long term (current) drug therapy

== ENCOUNTER → 2019-12-24 | Outpatient (REF) | payer MEDICARE ==
[~2019-12-24] MED LIST changes: +ELIQ5TAB; +FERR325T18
[2019-12-24 13:38] LABS: BASO % 0.8 % (0.0-1.0); EOS % 0.8 % (0.0-3.0); HEMATOCRIT 44.5 % (42.0-52.0); HEMOGLOBIN 13.7 g/dl (13.5-17.5); LYMPH # 1.9 10^3/uL (1.5-5.0); LYMPH % 37.5 % (24.0-44.0); MEAN CORPUSCULAR HEMOGLOBIN 20.7 pg (27.0-33.0); MEAN CORPUSCULAR HGB CONC 30.8 g/dl (32.0-36.5); MEAN CORPUSCULAR VOLUME 67.3 fl (80.0-96.0); MONO # 0.4 10^3/uL (0.0-0.8); MONO % 8.4 % (0.0-5.0); NEUTROPHILS # 2.7 10^3/uL (1.5-8.5); NEUTROPHILS % 52.3 % (36.0-66.0); PLATELET COUNT, AUTOMATED 245 10^3/uL (150-450); RED BLOOD COUNT 6.61 10^6/uL (4.30-6.10); WHITE BLOOD COUNT 5.1 10^3/uL (4.0-10.0)
[2019-12-24 13:45] LABS: INR 1.11
[2019-12-24 13:46] LABS: PARTIAL THROMBOPLASTIN TIME 31.9 SECONDS (25.0-38.4)
[2019-12-24 14:34] LABS: CHOLESTEROL RISK RATIO 3.122 (<5); FREE T4 1.08 NG/DL (0.76-1.46); THYROID STIMULATING HORMONE 1.63 uIU/ML (0.358-3.740)
== END ==
LOC: M SFHCPLAZ 12:07
PROVIDERS: ATTEND Family Medicine
DX: D50.9 Iron deficiency anemia, unspecified (principal); E78.2 Mixed hyperlipidemia; E53.8 Deficiency of other specified B group vitamins; Z72.89 Other problems related to lifestyle; Z12.5 Encounter for screening for malignant neoplasm of prostate
CPT/HCPCS: 36415; 80061; 82105; 82140; 82172; 82607; 82728; 83010; 83883; 84439; 84443; 85025; 85610; 85730; G0103

== ENCOUNTER → 2020-01-28 | Outpatient (CLI) | payer MEDICARE ==
[~2020-01-28] MED LIST changes: +PANT40TA29; +PANT40TA29 PO; -PANT40TA3; -PANT40TA3 PO
--- NOTE | 2020-02-20 08:01 | REP ---
DEEP VENOUS ULTRASONOGRAPHY RIGHT THIGH AND DEEP VENOUS ULTRASONOGRAPHY LEFT THIGH: COMPARISON: 06/12/19, also bilateral. HISTORY: The prior examination showed chronic nonocclusive thrombus in the proximal right superficial, femoral and popliteal veins with an occlusive thrombus in the mid to distal right superficial femoral vein. No abnormal thrombus was seen on the left. FINDINGS: Multiple ultrasonographic images of the deep venous structures of the thigh were obtained bilaterally from the level of the common femoral vein, with the popliteal vein inclusive and along with Doppler interrogated techniques with augmentation and compression in the same fashion as the prior examination. On the left, no abnormal echogenic material has developed in any of the deep venous structures and coaptation was seen complete and throughout. On the right once again, abnormal echogenic material is seen in the deep venous structures in the same fashion as on the prior examination, some areas occluded and other areas not occluded. OVERALL IMPRESSION: No change MTDD
== END ==
LOC: M RAD 12:33
PROVIDERS: ATTEND Physician Assistant
DX: I82.509 Chronic embolism and thrombosis of unspecified deep veins of unspecified lower extremity (principal); I87.2 Venous insufficiency (chronic) (peripheral)

== ENCOUNTER → 2020-06-10 | Outpatient (REF) | payer MEDICARE ==
[2020-06-10 13:44] LABS: BASO % 0.6 % (0.0-1.0); EOS # 0.1 10^3/uL (0.0-0.5); EOS % 0.9 % (0.0-3.0); HEMATOCRIT 48.2 % (42.0-52.0); HEMOGLOBIN 14.6 g/dl (13.5-17.5); LYMPH # 1.6 10^3/uL (1.5-5.0); LYMPH % 29.8 % (24.0-44.0); MEAN CORPUSCULAR HEMOGLOBIN 20.9 pg (27.0-33.0); MEAN CORPUSCULAR HGB CONC 30.3 g/dl (32.0-36.5); MONO # 0.5 10^3/uL (0.0-0.8); MONO % 8.5 % (0.0-5.0); NEUTROPHILS # 3.3 10^3/uL (1.5-8.5); NEUTROPHILS % 59.8 % (36.0-66.0); PLATELET COUNT, AUTOMATED 226 10^3/uL (150-450); RED BLOOD COUNT 6.99 10^6/uL (4.30-6.10); WHITE BLOOD COUNT 5.4 10^3/uL (4.0-10.0)
[2020-06-10 14:03] LABS: ALT/SGPT 32 U/L (12-78); BILIRUBIN,TOTAL 0.9 MG/DL (0.2-1.0); BLOOD UREA NITROGEN 13 MG/DL (7-18); CALCIUM LEVEL 9.2 MG/DL (8.8-10.2); CARBON DIOXIDE LEVEL 29 MEQ/L (21-32); CHLORIDE LEVEL 108 MEQ/L (98-107); CREATININE FOR GFR 0.86 MG/DL (0.70-1.30); GLOMERULAR FILTRATION RATE > 60.0 (>42); GLUCOSE, FASTING 72 MG/DL (70-100); NT-PRO BNP 41 PG/ML (<450); POTASSIUM SERUM 5.6 MEQ/L (3.5-5.1); SODIUM LEVEL 140 MEQ/L (136-145); TOTAL PROTEIN 6.8 GM/DL (6.4-8.2)
== END ==
LOC: M SFHCPLAZ 11:34
PROVIDERS: ATTEND Family Medicine
DX: E78.2 Mixed hyperlipidemia (principal); D50.9 Iron deficiency anemia, unspecified

== ENCOUNTER → 2021-05-05 | Outpatient (CLI) | payer MEDICARE ==
[2021-05-05 12:07] LABS: HEMATOCRIT 39.4 % (42.0-52.0)
[2021-05-05 12:08] LABS: APPEARANCE, URINE CLEAR (CLEAR); BACTERIA, URINE AUTO NEGATIVE (NEGATIVE); BILIRUBIN, URINE AUTO NEGATIVE (NEGATIVE); BLOOD, URINE BLOOD NEGATIVE (NEGATIVE); COLOR, URINE YELLOW (YELLOW); GLUCOSE, URINE (UA) AUTO NEGATIVE (NEGATIVE); KETONE, URINE AUTO NEGATIVE (NEGATIVE); LEUKOCYTE ESTERASE, URINE AUTO NEGATIVE (NEGATIVE); MUCUS, URINE SMALL (NEGATIVE); NITRITE, URINE AUTO NEGATIVE (NEGATIVE); PROTEIN, URINE AUTO NEGATIVE (NEGATIVE); RBC, URINE AUTO 1 /HPF (0-3); SPECIFIC GRAVITY URINE AUTO 1.016 (1.002-1.035); SQUAMOUS EPITHELIAL CELL UR AU 0 /HPF (0-6); UROBILINOGEN, URINE AUTO 0.2 mg/dL (0.0-2.0); WBC, URINE AUTO 1 /HPF (0-3)
[2021-05-05 12:13] LABS: BASO % 0.6 % (0.0-1.0); EOS # 0.1 10^3/uL (0.0-0.5); EOS % 1.3 % (0.0-3.0); HEMATOCRIT 39.6 % (42.0-52.0); HEMOGLOBIN 12.2 g/dl (13.5-17.5); LYMPH # 1.7 10^3/uL (1.5-5.0); LYMPH % 31.8 % (24.0-44.0); MEAN CORPUSCULAR HEMOGLOBIN 20.6 pg (27.0-33.0); MEAN CORPUSCULAR HGB CONC 30.8 g/dl (32.0-36.5); MONO # 0.4 10^3/uL (0.0-0.8); MONO % 7.2 % (2.0-8.0); NEUTROPHILS # 3.1 10^3/uL (1.5-8.5); NEUTROPHILS % 58.5 % (36.0-66.0); PLATELET COUNT, AUTOMATED 318 10^3/uL (150-450); RED BLOOD COUNT 5.91 10^6/uL (4.30-6.10); WHITE BLOOD COUNT 5.3 10^3/uL (4.0-10.0)
[2021-05-05 12:36] LABS: C REACTIVE PROTEIN QUANTITATIV 0.52 MG/DL (0.00-0.30); CHOLESTEROL RISK RATIO 3.06 (<5); PERCENT SATURATION 24.3 % (19.7-50.0)
== END ==
LOC: M PLAIMG 10:32 → M PLALAB 10:32
PROVIDERS: ATTEND Family Medicine
DX: D50.9 Iron deficiency anemia, unspecified (principal); E53.8 Deficiency of other specified B group vitamins; Z12.5 Encounter for screening for malignant neoplasm of prostate; R35.1 Nocturia; I87.2 Venous insufficiency (chronic) (peripheral); W19.XXXA Unspecified fall, initial encounter; Z79.899 Other long term (current) drug therapy; S20.90XA Unspecified superficial injury of unspecified parts of thorax, initial encounter; S60.222A Contusion of left hand, initial encounter; S60.212A Contusion of left wrist, initial encounter; Z79.01 Long term (current) use of anticoagulants
CPT/HCPCS: 36415; 71100; 73110; 73130; 80061; 81001; 82607; 82728; 82747; 83550; 83880; 85025; 86140; 87086; G0103

== ENCOUNTER → 2022-01-29 | Outpatient (CLI) | payer MEDICARE ==
[2022-01-29 16:56] LABS: BASO # 0.1 10^3/uL (0.0-0.2); BASO % 0.6 % (0.0-1.0); EOS # 0.1 10^3/uL (0.0-0.5); EOS % 1.4 % (0.0-3.0); HEMATOCRIT 38.4 % (42.0-52.0); HEMOGLOBIN 12.3 g/dl (13.5-17.5); LYMPH # 2.3 10^3/uL (1.5-5.0); LYMPH % 26.7 % (24.0-44.0); MEAN CORPUSCULAR HEMOGLOBIN 21.5 pg (27.0-33.0); MONO # 0.7 10^3/uL (0.0-0.8); MONO % 7.7 % (2.0-8.0); NEUTROPHILS # 5.5 10^3/uL (1.5-8.5); NEUTROPHILS % 63.3 % (36.0-66.0); PLATELET COUNT, AUTOMATED 361 10^3/uL (150-450); RED BLOOD COUNT 5.73 10^6/uL (4.30-6.10); WHITE BLOOD COUNT 8.6 10^3/uL (4.0-10.0)
[2022-01-29 17:24] LABS: ALBUMIN 3.6 GM/DL (3.2-5.2); ALT/SGPT 24 U/L (12-78); BILIRUBIN,TOTAL 0.6 MG/DL (0.2-1.0); BLOOD UREA NITROGEN 12 MG/DL (7-18); CALCIUM LEVEL 9.1 MG/DL (8.8-10.2); CARBON DIOXIDE LEVEL 30 MEQ/L (21-32); CHLORIDE LEVEL 107 MEQ/L (98-107); CREATININE FOR GFR 0.75 MG/DL (0.70-1.30); GLOMERULAR FILTRATION RATE > 60.0 (>42); GLUCOSE, FASTING 73 MG/DL (70-100); POTASSIUM SERUM 4.5 MEQ/L (3.5-5.1); SODIUM LEVEL 139 MEQ/L (136-145); TOTAL PROTEIN 6.3 GM/DL (6.4-8.2)
== END ==
LOC: M PLAIMG 15:36
PROVIDERS: ATTEND Physician Assistant
DX: U07.1 COVID-19 (principal); R05.9 Cough, unspecified; R53.83 Other fatigue

== ENCOUNTER → 2022-01-30 | Outpatient (REF) | payer MEDICARE | LOC: M LAB REF 15:21 | PROVIDERS: ATTEND Physician Assistant | DX: R19.5 Other fecal abnormalities (principal) ==

== ENCOUNTER 2022-09-20 06:21 | Emergency (ER) | payer MEDICARE ==
[~2022-09-20] VITALS: Ht 177.8 cm; Wt 80.0 kg
[2022-09-20 07:15] LABS: BASO % 0.2 % (0.0-1.0); HEMATOCRIT 44.3 % (42.0-52.0); HEMOGLOBIN 13.6 g/dl (13.5-17.5); LYMPH # 0.8 10^3/uL (1.5-5.0); LYMPH % 7.6 % (24.0-44.0); MEAN CORPUSCULAR HEMOGLOBIN 20.8 pg (27.0-33.0); MEAN CORPUSCULAR HGB CONC 30.7 g/dl (32.0-36.5); MEAN CORPUSCULAR VOLUME 67.6 fl (80.0-96.0); MONO # 0.4 10^3/uL (0.0-0.8); MONO % 3.9 % (2.0-8.0); NEUTROPHILS # 8.7 10^3/uL (1.5-8.5); NEUTROPHILS % 87.8 % (36.0-66.0); PLATELET COUNT, AUTOMATED 265 10^3/uL (150-450); RED BLOOD COUNT 6.55 10^6/uL (4.30-6.10)
[2022-09-20 07:34] LABS: LIPASE 26 U/L (12-53)
[2022-09-20 07:35] LABS: AMYLASE 66 U/L (30-118)
[2022-09-20 07:36] LABS: ALBUMIN 4.5 G/DL (3.2-5.2); ALKALINE PHOSPHATASE 82 U/L (46-116); ALT/SGPT 21 U/L (7.0-40); AST/SGOT 13 U/L (<34); BILIRUBIN,DIRECT 0.4 MG/DL (<0.4); BILIRUBIN,TOTAL 1.1 MG/DL (0.3-1.2); BLOOD UREA NITROGEN 16 MG/DL (9-23); CALCIUM LEVEL 9.6 MG/DL (8.3-10.6); CARBON DIOXIDE LEVEL 28 MMOL/L (20-31); CHLORIDE LEVEL 105 MMOL/L (98-107); CREATININE FOR GFR 0.81 MG/DL (0.70-1.30); GLOMERULAR FILTRATION RATE > 60.0 (>35); GLUCOSE, FASTING 137 MG/DL (74-106); POTASSIUM SERUM 4.2 MMOL/L (3.5-5.1); SODIUM LEVEL 140 MMOL/L (136-145); TOTAL PROTEIN 7.4 G/DL (5.7-8.2)
[2022-09-20] MEDS ORDERED: GI COCKTAIL 50ML BTL(HYOSCYAMINE/MAALOX/LIDOCAINE VISCOUS)(1:3:1) PO ONE (08:15)
[2022-09-20] MEDS ORDERED: PANTOPRAZOLE 40MG VIAL IV ONE (08:15)
[2022-09-20] MEDS ORDERED: CARA1TAB6 PO (09:27)
[2022-09-20 09:30] VITALS: BP 163/85
== END 2022-09-20 10:47 | disposition home or self-care (01) ==
LOC: M ED 06:21
DX: K21.9 Gastro-esophageal reflux disease without esophagitis (principal); K57.92 Diverticulitis of intestine, part unspecified, without perforation or abscess without bleeding; F10.10 Alcohol abuse, uncomplicated; F12.10 Cannabis abuse, uncomplicated; F17.200 Nicotine dependence, unspecified, uncomplicated; Z86.718 Personal history of other venous thrombosis and embolism; Z88.0 Allergy status to penicillin; Z79.01 Long term (current) use of anticoagulants; Z91.048 Other nonmedicinal substance allergy status; Z79.899 Other long term (current) drug therapy
CPT/HCPCS: 80048; 80076; 82150; 83690; 84484; 85025; 93005; 96374; 99284; C9113

== ENCOUNTER → 2023-03-31 | Outpatient (REF) | payer MEDICARE ==
[~2023-03-31] MED LIST changes: +CARA1TAB6 PO
== END ==
LOC: M SFHCPLAZ 17:11
PROVIDERS: ATTEND Family Medicine
DX: E78.2 Mixed hyperlipidemia (principal); E53.8 Deficiency of other specified B group vitamins; Z12.5 Encounter for screening for malignant neoplasm of prostate; I26.99 Other pulmonary embolism without acute cor pulmonale

== ENCOUNTER → 2023-05-23 | Outpatient (CLI) | payer MEDICARE ==
[2023-05-23 14:33] LABS: BASO % 0.4 % (0.0-1.0); EOS # 0.1 10^3/uL (0.0-0.5); EOS % 1.2 % (0.0-3.0); HEMATOCRIT 41.3 % (42.0-52.0); HEMOGLOBIN 12.9 g/dl (13.5-17.5); LYMPH # 1.8 10^3/uL (1.5-5.0); LYMPH % 34.3 % (24.0-44.0); MEAN CORPUSCULAR HEMOGLOBIN 21.2 pg (27.0-33.0); MEAN CORPUSCULAR HGB CONC 31.2 g/dl (32.0-36.5); MEAN CORPUSCULAR VOLUME 67.8 fl (80.0-96.0); MONO # 0.4 10^3/uL (0.0-0.8); MONO % 7.8 % (2.0-8.0); NEUTROPHILS # 2.9 10^3/uL (1.5-8.5); NEUTROPHILS % 55.7 % (36.0-66.0); PLATELET COUNT, AUTOMATED 223 10^3/uL (150-450); RED BLOOD COUNT 6.09 10^6/uL (4.30-6.10); WHITE BLOOD COUNT 5.1 10^3/uL (4.0-10.0)
[2023-05-23 14:35] LABS: ALBUMIN 3.9 G/DL (3.2-5.2); ALKALINE PHOSPHATASE 75 U/L (46-116); ALT/SGPT 17 U/L (7.0-40); AST/SGOT 11 U/L (<34); BILIRUBIN,TOTAL 0.8 MG/DL (0.3-1.2); BLOOD UREA NITROGEN 11 MG/DL (9-23); CALCIUM LEVEL 9.3 MG/DL (8.3-10.6); CARBON DIOXIDE LEVEL 30 MMOL/L (20-31); CHLORIDE LEVEL 106 MMOL/L (98-107); CHOLESTEROL LEVEL 170 MG/DL (<200); CHOLESTEROL RISK RATIO 3.14 (<5); CREATININE FOR GFR 0.79 MG/DL (0.70-1.30); FERRITIN 204.1 NG/ML (10.5-307.3); GLOMERULAR FILTRATION RATE > 60.0 (>35); GLUCOSE, FASTING 89 MG/DL (74-106); HDL CHOLESTEROL 54.1 MG/DL (>40); LDL CHOLESTEROL 102.9 MG/DL (<100); NON-HDL-C 115.9 MG/DL; POTASSIUM SERUM 4.2 MMOL/L (3.5-5.1); PSA SCREENING 0.84 NG/ML (< 4.00); SODIUM LEVEL 139 MMOL/L (136-145); TOTAL PROTEIN 6.5 G/DL (5.7-8.2); TRIGLYCERIDES LEVEL 65 MG/DL (<150)
[2023-05-23 14:36] LABS: THYROID STIMULATING HORMONE 1.736 uIU/ML (0.55-4.78)
[2023-05-23 14:37] LABS: FREE T4 1.12 NG/DL (0.89-1.76)
== END ==
LOC: M PLALAB 11:01
PROVIDERS: ATTEND Family Medicine
DX: E78.2 Mixed hyperlipidemia (principal); E53.8 Deficiency of other specified B group vitamins; Z12.5 Encounter for screening for malignant neoplasm of prostate; I26.99 Other pulmonary embolism without acute cor pulmonale; Z86.39 Personal history of other endocrine, nutritional and metabolic disease
CPT/HCPCS: 36415; 80053; 80061; 82728; 84439; 84443; 85025; G0103

== ENCOUNTER → 2024-02-20 | Outpatient (REF) | payer MEDICARE ==
[~2024-02-20] MED LIST changes: -CORT1OIN2 TOP; +HYDR28OI12 TOP
== END ==
LOC: M SFHCPLAZ 17:06
PROVIDERS: ATTEND Family Medicine
DX: I35.0 Nonrheumatic aortic (valve) stenosis (principal); D50.9 Iron deficiency anemia, unspecified; E53.8 Deficiency of other specified B group vitamins; Z80.0 Family history of malignant neoplasm of digestive organs

== ENCOUNTER → 2024-02-27 | Outpatient (REF) | payer MEDICARE | LOC: M SFHCPLAZ 12:13 | PROVIDERS: ATTEND Family Medicine | DX: I35.0 Nonrheumatic aortic (valve) stenosis (principal); D50.9 Iron deficiency anemia, unspecified; E53.8 Deficiency of other specified B group vitamins; Z80.0 Family history of malignant neoplasm of digestive organs; J30.9 Allergic rhinitis, unspecified ==

== ENCOUNTER → 2024-02-27 | Outpatient (CLI) | payer MEDICARE ==
[2024-02-27 13:54] LABS: BASO % 0.7 % (0.0-1.0); EOS # 0.1 10^3/uL (0.0-0.5); EOS % 1.1 % (0.0-3.0); HEMATOCRIT 40.6 % (42.0-52.0); HEMOGLOBIN 12.5 g/dl (13.5-17.5); LYMPH # 1.8 10^3/uL (1.5-5.0); LYMPH % 31.9 % (24.0-44.0); MEAN CORPUSCULAR HEMOGLOBIN 21.1 pg (27.0-33.0); MEAN CORPUSCULAR HGB CONC 30.8 g/dl (32.0-36.5); MEAN CORPUSCULAR VOLUME 68.5 fl (80.0-96.0); MONO # 0.4 10^3/uL (0.0-0.8); MONO % 7.7 % (2.0-8.0); NEUTROPHILS # 3.2 10^3/uL (1.5-8.5); NEUTROPHILS % 57.7 % (36.0-66.0); PLATELET COUNT, AUTOMATED 248 10^3/uL (150-450); RED BLOOD COUNT 5.93 10^6/uL (4.30-6.10); WHITE BLOOD COUNT 5.6 10^3/uL (4.0-10.0)
[2024-02-27 14:03] LABS: ALBUMIN 3.8 G/DL (3.2-5.2); ALKALINE PHOSPHATASE 73 U/L (46-116); ALT/SGPT 16 U/L (7.0-40); AST/SGOT 10 U/L (<34); BLOOD UREA NITROGEN 11 MG/DL (9-23); CALCIUM LEVEL 9.4 MG/DL (8.3-10.6); CARBON DIOXIDE LEVEL 31 MMOL/L (20-31); CHLORIDE LEVEL 107 MMOL/L (98-107); CREATININE FOR GFR 0.83 MG/DL (0.70-1.30); FERRITIN 184.5 NG/ML (10.5-307.3); GLOMERULAR FILTRATION RATE > 60.0 (>35); GLUCOSE, FASTING 89 MG/DL (74-106); POTASSIUM SERUM 4.7 MMOL/L (3.5-5.1); SODIUM LEVEL 140 MMOL/L (136-145); TOTAL PROTEIN 6.5 G/DL (5.7-8.2); VITAMIN B12 LEVEL 444 PG/ML (211-911)
[2024-02-27 14:05] LABS: IMMUNOGLOBULIN E 15.6 IU/ML (0-378)
== END ==
LOC: M PLALAB 10:27
PROVIDERS: ATTEND Family Medicine
DX: I35.0 Nonrheumatic aortic (valve) stenosis (principal); D50.9 Iron deficiency anemia, unspecified; E53.8 Deficiency of other specified B group vitamins; J30.9 Allergic rhinitis, unspecified

== ENCOUNTER 2024-04-02 10:15 | Outpatient (CLI) | payer MEDICARE ==
[~2024-04-02] VITALS: Ht 177.8 cm; Wt 81.8 kg
[~2024-04-02 10:15] MED LIST changes: +ALBUTEROL SULFATE 2.5MG/0.5ML INH NEB SOLN INH PRN; +EPINEPHrine INJ 1 MG/ML 1ML AMP IM PRN; +diphenhydrAMINE 50MG/ML VIAL IV PRN; +methylPREDNISolone 125MG 2ML VIAL IV PRN
[2024-04-02 10:20] VITALS: BP 137/75; O2SAT 99
[2024-04-02] MEDS ORDERED: NS 1,000 ML IV SCH (10:30)
[2024-04-02] MEDS: FERRIC CARBOXYMALTOSE 750 MG (VIAL MATE) IN 100ML NS IV ONE (10:32)
[2024-04-02 11:20] VITALS: BP 128/68; O2SAT 97
== END 2024-04-02 11:20 ==
LOC: M INFU 10:15
PROVIDERS: ATTEND Family Medicine
DX: D50.9 Iron deficiency anemia, unspecified (principal); Z88.0 Allergy status to penicillin; Z91.048 Other nonmedicinal substance allergy status
CPT/HCPCS: 96365; J1439

== ENCOUNTER 2024-05-28 15:41 | Emergency (ER) | payer MEDICARE ==
[~2024-05-28] VITALS: Ht 177.8 cm; Wt 81.4 kg
[~2024-05-28 15:41] MED LIST changes: -ALBUTEROL SULFATE 2.5MG/0.5ML INH NEB SOLN INH PRN; -ELIQ5TAB; +ELIQ5TAB PO; -EPINEPHrine INJ 1 MG/ML 1ML AMP IM PRN; -FERR325T18; +FERR325T18 PO; +FLUTISP; +TAMS1CAP17 PO; -diphenhydrAMINE 50MG/ML VIAL IV PRN; -methylPREDNISolone 125MG 2ML VIAL IV PRN
[2024-05-28 18:15] LABS: BASO % 0.3 % (0.0-1.0); EOS % 0.1 % (0.0-3.0); HEMATOCRIT 25.6 % (42.0-52.0); HEMOGLOBIN 8.1 g/dl (13.5-17.5); LYMPH # 0.7 10^3/uL (1.5-5.0); MEAN CORPUSCULAR HEMOGLOBIN 20.8 pg (27.0-33.0); MEAN CORPUSCULAR HGB CONC 31.6 g/dl (32.0-36.5); MEAN CORPUSCULAR VOLUME 65.6 fl (80.0-96.0); MONO # 0.4 10^3/uL (0.0-0.8); MONO % 3.7 % (2.0-8.0); NEUTROPHILS # 8.7 10^3/uL (1.5-8.5); NEUTROPHILS % 88.3 % (36.0-66.0); PLATELET COUNT, AUTOMATED 478 10^3/uL (150-450); WHITE BLOOD COUNT 9.9 10^3/uL (4.0-10.0)
[2024-05-28 18:50] LABS: ALBUMIN 2.9 G/DL (3.2-5.2); ALKALINE PHOSPHATASE 95 U/L (40-129); ALT/SGPT 19 U/L (7.0-40); AST/SGOT 16 U/L (<34); BILIRUBIN,DIRECT 0.2 MG/DL (<0.4); BILIRUBIN,TOTAL 0.5 MG/DL (0.3-1.2); BLOOD UREA NITROGEN 14 MG/DL (9-23); CALCIUM LEVEL 9.1 MG/DL (8.3-10.6); CARBON DIOXIDE LEVEL 25 MMOL/L (20-31); CHLORIDE LEVEL 105 MMOL/L (98-107); CREATININE FOR GFR 0.82 MG/DL (0.70-1.30); GLOMERULAR FILTRATION RATE > 60.0 (>35); GLUCOSE, FASTING 100 MG/DL (74-106); POTASSIUM SERUM 4.5 MMOL/L (3.5-5.1); SODIUM LEVEL 138 MMOL/L (136-145); TOTAL PROTEIN 6.4 G/DL (5.7-8.2)
[2024-05-28 19:24] VITALS: BP 128/70; TEMP 101.5; O2SAT 96
[2024-05-28] MEDS: ACETAMINOPHEN 325 MG TAB PO ONE (19:29)
== END 2024-05-28 19:31 | disposition home or self-care (01) ==
LOC: M ED 15:41
DX: U07.1 COVID-19 (principal); D64.9 Anemia, unspecified; N40.0 Benign prostatic hyperplasia without lower urinary tract symptoms; F10.10 Alcohol abuse, uncomplicated; Z86.711 Personal history of pulmonary embolism; Z86.718 Personal history of other venous thrombosis and embolism; Z87.891 Personal history of nicotine dependence; Z88.0 Allergy status to penicillin; Z91.048 Other nonmedicinal substance allergy status; Z79.01 Long term (current) use of anticoagulants; Z79.899 Other long term (current) drug therapy

== ENCOUNTER → 2024-07-12 | Outpatient (CLI) | payer MEDICARE ==
[2024-07-12 18:36] LABS: BASO % 0.5 % (0.0-1.0); EOS # 0.1 10^3/uL (0.0-0.5); EOS % 1.6 % (0.0-3.0); HEMATOCRIT 33.5 % (42.0-52.0); HEMOGLOBIN 10.1 g/dl (13.5-17.5); LYMPH # 2.1 10^3/uL (1.5-5.0); LYMPH % 36.4 % (24.0-44.0); MEAN CORPUSCULAR HGB CONC 30.1 g/dl (32.0-36.5); MEAN CORPUSCULAR VOLUME 66.2 fl (80.0-96.0); MONO # 0.5 10^3/uL (0.0-0.8); MONO % 8.3 % (2.0-8.0); NEUTROPHILS # 3.1 10^3/uL (1.5-8.5); NEUTROPHILS % 52.9 % (36.0-66.0); PLATELET COUNT, AUTOMATED 243 10^3/uL (150-450); RED BLOOD COUNT 5.06 10^6/uL (4.30-6.10); WHITE BLOOD COUNT 5.8 10^3/uL (4.0-10.0)
[2024-07-12 18:58] LABS: ALBUMIN 3.4 G/DL (3.2-5.2); ALKALINE PHOSPHATASE 79 U/L (40-129); ALT/SGPT 13 U/L (7.0-40); AST/SGOT 10 U/L (<34); BILIRUBIN,TOTAL 0.6 MG/DL (0.3-1.2); BLOOD UREA NITROGEN 11 MG/DL (9-23); CALCIUM LEVEL 9.1 MG/DL (8.3-10.6); CARBON DIOXIDE LEVEL 28 MMOL/L (20-31); CHLORIDE LEVEL 106 MMOL/L (98-107); CREATININE FOR GFR 0.76 MG/DL (0.70-1.30); GLOMERULAR FILTRATION RATE > 60.0 (>35); GLUCOSE, FASTING 79 MG/DL (74-106); POTASSIUM SERUM 4.4 MMOL/L (3.5-5.1); SODIUM LEVEL 141 MMOL/L (136-145); TOTAL PROTEIN 6.5 G/DL (5.7-8.2)
[2024-07-12 19:04] LABS: FERRITIN 339.9 NG/ML (10.5-307.3)
[2024-07-12 19:05] LABS: VITAMIN B12 LEVEL 342 PG/ML (211-911)
== END ==
LOC: M PLALAB 14:47
PROVIDERS: ATTEND Family Medicine
DX: I35.0 Nonrheumatic aortic (valve) stenosis (principal); D50.9 Iron deficiency anemia, unspecified; E53.8 Deficiency of other specified B group vitamins

== ENCOUNTER 2024-08-08 07:24 | Day surgery (SDC) | payer MEDICARE ==
[~2024-08-08] VITALS: Ht 177.8 cm; Wt 75.8 kg
[~2024-08-08 07:24] MED LIST changes: +MIRA3350 PO
[2024-08-08] MEDS ORDERED: LIDOCAINE 2% 100MG/5ML SDV (FOR ANES.) As Ordered ONE (07:27)
[2024-08-08] MEDS ORDERED: propofoL 200 MG/20 ML VIAL As Ordered ONE (07:27)
[2024-08-08 09:05] VITALS: BP 141/83; O2SAT 98
== END 2024-08-08 09:21 | disposition home or self-care (01) ==
LOC: M OPP 07:24
PROVIDERS: ATTEND Internal Medicine Gastroenterology
DX: D12.5 Benign neoplasm of sigmoid colon (principal); K64.0 First degree hemorrhoids; K57.30 Diverticulosis of large intestine without perforation or abscess without bleeding; D50.9 Iron deficiency anemia, unspecified; K44.9 Diaphragmatic hernia without obstruction or gangrene; K22.2 Esophageal obstruction; K21.9 Gastro-esophageal reflux disease without esophagitis; F32.A Depression, unspecified; G43.909 Migraine, unspecified, not intractable, without status migrainosus; Z86.718 Personal history of other venous thrombosis and embolism; Z88.0 Allergy status to penicillin; Z88.8 Allergy status to other drugs, medicaments and biological substances; Z79.01 Long term (current) use of anticoagulants; Z79.899 Other long term (current) drug therapy

== ENCOUNTER 2024-08-16 11:15 | Outpatient (CLI) | payer MEDICARE ==
[~2024-08-16] VITALS: Ht 177.8 cm; Wt 76.8 kg
[~2024-08-16 11:15] MED LIST changes: +ALBUTEROL SULFATE 2.5MG/0.5ML INH NEB SOLN INH PRN; +EPINEPHrine INJ 1 MG/ML 1ML AMP IM PRN; +diphenhydrAMINE 50MG/ML VIAL IV PRN; +methylPREDNISolone 125MG 2ML VIAL IV PRN
[2024-08-16 11:25] VITALS: BP 124/68; O2SAT 99
[2024-08-16] MEDS: FERRIC CARBOXYMALTOSE 750 MG (VIAL MATE) IN 100ML NS IV ONE (11:29)
[2024-08-16 12:00] VITALS: BP 122/65; O2SAT 98
== END 2024-08-16 12:00 ==
LOC: M INFU 11:15
PROVIDERS: ATTEND Family Medicine
DX: D50.9 Iron deficiency anemia, unspecified (principal); Z88.0 Allergy status to penicillin; Z91.048 Other nonmedicinal substance allergy status
CPT/HCPCS: 96365; J1439

== ENCOUNTER → 2024-09-25 | Outpatient (CLI) | payer MEDICARE ==
[~2024-09-25] MED LIST changes: -ALBUTEROL SULFATE 2.5MG/0.5ML INH NEB SOLN INH PRN; -EPINEPHrine INJ 1 MG/ML 1ML AMP IM PRN; -diphenhydrAMINE 50MG/ML VIAL IV PRN; -methylPREDNISolone 125MG 2ML VIAL IV PRN
== END ==
LOC: M CARPUL 07:29
PROVIDERS: ATTEND Family Medicine
DX: I35.0 Nonrheumatic aortic (valve) stenosis (principal)

== ENCOUNTER → 2024-12-11 | Outpatient (CLI) | payer MEDICARE ==
[~2024-12-11] MED LIST changes: +ISOVUE-370 76% 100 ML VIAL ONE
== END ==
LOC: M PLAIMG 10:32
PROVIDERS: ATTEND Family Medicine
DX: K43.9 Ventral hernia without obstruction or gangrene (principal)
CPT/HCPCS: 74160; Q9967

== ENCOUNTER → 2025-04-24 | Outpatient (CLI) | payer MEDICARE ==
[~2025-04-24] MED LIST changes: -ISOVUE-370 76% 100 ML VIAL ONE
[2025-04-24 14:10] LABS: CREATININE FOR GFR 0.84 MG/DL (0.70-1.30); GLOMERULAR FILTRATION RATE 87.1 (>35)
== END ==
LOC: M PLALAB 12:04
PROVIDERS: ATTEND Surgery
DX: K46.9 Unspecified abdominal hernia without obstruction or gangrene (principal)

== ENCOUNTER → 2025-04-29 | Outpatient (CLI) | payer MEDICARE ==
[~2025-04-29] MED LIST changes: +ISOVUE-370 76% 100 ML VIAL As Ordered ONE
== END ==
LOC: M RAD 14:56
PROVIDERS: ATTEND Surgery
DX: K46.9 Unspecified abdominal hernia without obstruction or gangrene (principal)
CPT/HCPCS: 74177; Q9967